=== PATIENT | female | born 1955 | race Caucasian/White ===

== ENCOUNTER 2020-02-22 08:58 | Emergency (ER) | payer BC, SELFPAY ==
[2020-02-22 09:28] VITALS: BP 140/86; PULSE 72; RESP 18; TEMP 36.6; O2SAT 97; BMI 25.9
--- NOTE | 2020-02-22 09:30 | HMH.EDUTC ---
[facility] [place] Disposition Clinical Impression: Bronchitis, Exposure to COVID-19 virus Disposition: Home, Self-Care Condition on Discharge: Good Instructions: Preventing the Spread of Coronavirus Discharge Instructions Additional Instructions: Drink plenty of fluids. Take tylenol for pain or fever. Return if you begin to have difficulty breathing. Follow up with your regular doctor. GO TO THE ER FOR ANY WORSENING SYMPTOMS Prescriptions: Benzonatate [Tessalon Perle 100mg Cap] 100 mg PO TIDP PRN #30 cap PRN Reason: Cough Transmission Status: Sent to [facility] # Azithromycin [Z-Roberto 250mg Tab*] 250 mg PO UD DOSE PK #6 tab Transmission Status: Sent to [facility] # Referrals: Milton Fontanez [Primary Care Provider] - Time of Disposition: 10:03 Medical Decision Making - Medical Records Medical records reviewed: No: I reviewed the patient's medical records. - Matthew Inquiry Pt receiving controlled substance: No Vital Signs: 02/22/20 09:28 02/22/20 10:08 Temperature 97.9 F 97.9 F Temperature Source Oral Oral Pulse Rate 72 Pulse Rate [Radial] 72 Respiratory Rate 18 18 Blood Pressure 140/86 Blood Pressure [Right Arm] 140/86 Blood Pressure Mean [Right Arm] 104 Blood Pressure Source Automatic Cuff Blood Pressure Source [Right Arm] Automatic Cuff Blood Pressure Position Sitting Blood Pressure Position [Right Arm] Sitting 02 Sat by Pulse Oximetry 97 Oxygen Delivery Method Room Air Room Air Orders (Tests/Meds): ORDERS Category Date Time Status Covid-19 Nasal PCR Sendout Jose Ramon Stat Lab 02/22/20 09:25 Received - Radiology Data #1 Image(s): Chest Image Reviewed: Yes I reviewed the patient's radiology image, Yes I have reviewed radiologist's interpretation Preliminary Findings: Normal/NAD PROCEDURE: XR CHEST PORTABLE CLINICAL HISTORY: cough COMPARISON: No exams were available for comparison FINDINGS: The cardiomediastinal silhouette and pulmonary vascularity are within normal limits. The lungs are clear without infiltrates, suspicious nodules, or pleural effusions. Upper thoracic scoliosis convex left. IMPRESSION: No acute findings. Dictated by: Tremaine Champion MD 02/22/2020 10:40 Tremaine Champion MD in [facility] 02/22/2020 10:40 [facility] [place] HPI - General Stated complaint: possible pneumonia, covid test Time Seen by Provider: 02/22/20 09:30 - History of Present Illness Provider Complaint: She c/o having chest congestion, cough and feeling bad for the past 3 to 4 days. She denies fever. She states that she feels like she did in the past when she had pneumonia. She denies shortness of breath. - Related Data Previous Rx's Medication Instructions Recorded Azithromycin [Z-Roberto 250mg Tab*] 250 mg PO UD DOSE PK #6 tab 02/22/20 Benzonatate [Tessalon Perle 100mg 100 mg PO TIDP PRN #30 cap 02/22/20 Cap] Allergies Allergy/AdvReac Type Severity Reaction Status Date / Time No Known Allergies Allergy Verified 02/22/20 09:32 [facility] History - Hepatitis A Screen Attestation statement:: This patient has been screened for Hepatitis A risk factors. I have reviewed the patient's past medical history: Yes ROS Obtained: Yes All systems reviewed & no additional complaints - Constitutional Constitutional: Reports chills, Denies fever(s), Reports poor appetite, Reports malaise - Eyes Eyes: Denies eye discharge - ENT Ears, Nose, Mouth, and Throat: Reports as per HPI - Cardiovascular Cardiovascular: Denies chest pain - Respiratory Respiratory: Yes chest congestion, Yes cough, No dyspnea, No stridor, No wheezing - Gastrointestinal Gastrointestingal: Reports: nausea. Denies: abdominal pain, diarrhea, vomiting Physical Exam - General General appearance: alert, in no apparent distress - Head Head exam: atraumatic, normocephalic, normal inspection - Eye Eye exam: Present: normal appearance, PERRL, EOMI - ENT ENT
--- NOTE | 2020-02-22 09:37 | XR_ITS ---
PROCEDURE: XR CHEST PORTABLE CLINICAL HISTORY: cough COMPARISON: No exams were available for comparison FINDINGS: The cardiomediastinal silhouette and pulmonary vascularity are within normal limits. The lungs are clear without infiltrates, suspicious nodules, or pleural effusions. Upper thoracic scoliosis convex left. IMPRESSION: No acute findings. Dictated by: Tremaine Champion MD 02/22/2020 10:40 Tremaine Champion MD in [facility] 02/22/2020 10:40
[2020-02-22 10:08] VITALS: BP 140/86; PULSE 72; RESP 18; TEMP 36.6; O2SAT 97
[2020-02-22 21:18] LABS: Covid-19 Nasal PCR Sendout Lex Positive
== END 2020-02-22 10:11 | disposition home or self-care (01) ==
PROVIDERS: Emergency Provider Nurse Practitioner Family; PCP Family Medicine
DX: U07.1 COVID-19 (principal)
CPT/HCPCS: 71045; 99202; U0004

== ENCOUNTER 2020-09-22 19:47 | Emergency (ER) | payer BC, MEDICARE, SELFPAY ==
--- NOTE | 2020-09-22 19:58 | ECG_ITS ---
APPROVED REPORT Exam: Resting ECG HR:87 bpm ECG Measurements Heart Rate 87 AXES SC 128 P 57 QRSd 94 QRS 31 QT 376 T 68 QTc 452 Conclusion Normal sinus rhythm Possible Left atrial enlargement Incomplete right bundle branch block Nonspecific ST abnormality Abnormal ECG Electronically signed by : Warren Rojo, 09/24/2020 17:33:21
[2020-09-22 20:02] VITALS: BP 159/97; PULSE 87; RESP 22; TEMP 37.2; O2SAT 93; BMI 25.5
--- NOTE | 2020-09-22 20:12 | XR_ITS ---
PROCEDURE INFORMATION: Exam: XR Chest Exam date and time: 09/22/2020 8:12 PM Age: 65 years old Clinical indication: Cough and shortness of breath; Patient HX: SOA, productive cough, dx with bronchitis a few days ago but medicine isn't helping TECHNIQUE: Imaging protocol: XR of the chest. Views: 2 views. COMPARISON: CR XR CHEST PORTABLE 02/22/2020 9:37 AM FINDINGS: Lungs: See Vasculature finding. Pleural spaces: Unremarkable. No pleural effusion. No pneumothorax. Heart/Mediastinum: Unremarkable. No cardiomegaly. Vasculature: Stable aortic tortuosity and mild calcification. Stable left mid lung nodule. No other significant interval pulmonary changes are seen. Bones/joints: Mild degenerative osseous changes. Scoliosis of the upper dorsal spine is stable. IMPRESSION: No evidence of a new cardiopulmonary process.
[2020-09-22 20:20] VITALS: PULSE 86; PULSE 94
[2020-09-22 20:22] LABS: Microscopic, Urine URINE MICROSCOPIC (MICROSCOPIC)
[2020-09-22 20:26] LABS: Appearance,Urine SL CLOUDY (Clear); Bilirubin,Urine Negative (Negative); Blood, Urine 1+ (Negative); Color,Urine YELLOW (Yellow); Glucose,Urine (UA) 1+ (Negative); Ketones,Urine Negative (Negative); Leukocyte Esterase,Urine Negative (Negative); Nitrate,Urine Negative (Negative); Protein,Urine 2+ (Negative); Specific Gravity, Urine >= 1.030 (1.005-1.030); Urobilinogen,Urine 0.2 EU/dl (0.2)
[2020-09-22 20:27] LABS: Basophils # 0.1 K/mm3 (0-0.2); Basophils % 0.8 % (0.1-2.0); Eosinophils # 0.1 K/mm3 (0.0-0.4); Eosinophils % 1.5 % (0.1-12.0); Hematocrit 45.7 % (37.0-47.0); Hemoglobin 15.3 g/dL (12.2-16.2); Lymphocytes # 2.2 K/mm3 (0.7-4.5); Mean Corpuscular HGB Conc 33.6 g/dL (31.8-35.4); Mean Corpuscular Hemoglobin 29.9 pg (27.0-31.2); Mean Platelet Volume 8.4 fl (7.4-10.4); Monocytes # 0.3 K/mm3 (0.1-1.0); Monocytes % 4.7 % (1.7-9.3); Neutrophils # 4.5 K/mm3 (1.8-7.8); Platelet Count 229 K/mm3 (142-424); Red Blood Count 5.13 M/mm3 (4.20-5.40); Red Cell Distribution Width 13.2 % (11.5-17.5); White Blood Count 7.2 K/mm3 (4.8-10.8)
[2020-09-22 20:31] LABS: Alanine Aminotransferase 22 U/L (12-78); Albumin Level 4.5 g/dl (3.5-5.0); Albumin/Globulin Ratio 1.5 (1.1-1.8); Alkaline Phosphatase 77 U/L (38-126); Anion Gap 14.3 mEq/L (5-15); Aspartate Amino Transferase 28 U/L (14-36); Bilirubin,Total 0.5 mg/dl (0.2-1.3); Blood Urea Nitrogen 11 mg/dl (7-17); Carbon Dioxide 29 mmol/L (22.0-30.0); Chloride 100 mmol/L (98-107); Creatinine Clearance Estimated 52 mL/min (50-200); Estimated Glomerular Filt Rate 100 ml/min (>60); GFR (African American) 121 ML/MIN (>60); Glucose 213 mg/dl (74-100); Potassium 3.3 mmoL/L (3.5-5.1); Sodium 140 mmol/L (136-145); Total Protein,Serum 7.5 g/dl (6.3-8.2)
--- NOTE | 2020-09-22 20:32 | HMH.EDSOB ---
ED Disposition Clinical Impression: Bronchitis, Acute exacerbation of chronic obstructive airways disease Disposition: Home, Self-Care Condition on Discharge: Good Instructions: DI for Shortness of Breath Additional Instructions: use meds and see pcp for follow up Prescriptions: predniSONE [Prednisone 20mg Tab] 20 mg PO BID #10 tab Transmission Status: Pending to [facility] #[id number] Referrals: Milton Fonatnez [Primary Care Provider] - Preston Mata MD [Physician] - - Critical Care Critical Care Time: No Attestation: On 09/22/20, the high probability of a clinically significant, sudden or life threatening deterioration of the following system(s) required my full and direct attention, intervention and personal management. The time I documented below is in addition to time spent performing reported procedures but includes the following listed in this critical care notation. Medical Decision Making - Medical Records Medical records reviewed: Yes: I reviewed the patient's medical records. - Matthew Inquiry Pt receiving controlled substance: No Vital Signs: 09/22/20 20:02 09/22/20 20:20 09/22/20 21:00 Temperature 99.0 F Temperature Source Oral Pulse Rate 86 82 Pulse Rate [Right] 87 Respiratory Rate 22 20 Blood Pressure 146/78 H Blood Pressure [Right Arm] 159/97 H Blood Pressure Mean [Right Arm] 117 Blood Pressure Source [Right Arm] Automatic Cuff Blood Pressure Position [Right Arm] Supine 02 Sat by Pulse Oximetry 93 L 90 L Oxygen Delivery Method Room Air 09/22/20 21:30 09/22/20 22:00 Temperature Temperature Source Pulse Rate 84 77 Pulse Rate [Right] Respiratory Rate 18 21 Blood Pressure 152/77 H 139/76 Blood Pressure [Right Arm] Blood Pressure Mean [Right Arm] Blood Pressure Source [Right Arm] Blood Pressure Position [Right Arm] 02 Sat by Pulse Oximetry 91 L 89 L Oxygen Delivery Method - Lab Data Lab results reviewed: Yes: I reviewed the patient's lab results. Lab Results 09/22/20 19:59: Urine Color Yellow, Urine Appearance Sl cloudy, Urine pH 6.0, Ur Specific [place] >= 1.030, Urine Protein 2+, Urine Glucose (UA) 1+, Urine Ketones Negative, Urine Blood 1+, Urine Nitrate Negative, Urine Bilirubin Negative, Urine Urobilinogen 0.2, Ur Leukocyte Esterase Negative, Urine WBC 3-5, Ur Squamous Epith Cells 3-5, Urine Bacteria Trace 09/22/20 20:00: WBC 7.2, RBC 5.13, Hgb 15.3, Hct 45.7, MCV 89.0, MCH 29.9, MCHC 33.6, RDW 13.2, Plt Count 229, MPV 8.4, Neut % (Auto) 63.0, Lymph % (Auto) 30.0, [place] % (Auto) 4.7, Eos % (Auto) 1.5, Baso % (Auto) 0.8, Neut # (Auto) 4.5, Lymph # (Auto) 2.2, [place] # (Auto) 0.3, Eos # (Auto) 0.1, Baso # (Auto) 0.1, ESR 9 09/22/20 20:00: Sodium 140, Potassium 3.3 L, Chloride 100, Carbon Dioxide 29, Anion Gap 14.3, BUN 11, Creatinine 0.60, Estimated Creat Clear 52, Estimated GFR 100, Est GFR ( Amer) 121, Glucose 213 H, Calcium 9.0, Total Bilirubin 0.5, AST 28, ALT 22, Alkaline Phosphatase 77, C-Reactive Protein 5.2 H, Total Protein 7.5, Albumin 4.5, Globulin 3.0, Albumin/Globulin Ratio 1.5, Procalcitonin 0.033 09/22/20 20:00: Troponin I < 0.01 09/22/20 20:46: Chlamy pneumoniae PCR Not detected, Adenovirus (PCR) Not detected, B. pertussis DNA (PCR) Not detected, Coronavirus OC43 (PCR) Not detected, Coronavirus HKU1 (PCR) Not detected, Coronavirus 229E (PCR) Not detected, SARS-CoV-2 (PCR) Not detected, Coronavirus NL63 (PCR) Not detected, Human Metapneumovir PCR Not detected, Influenza A (H1) PCR Not detected, Influ A (H1N1/09) PCR Not detected, Influenza A (H3) PCR Not detected, Influenza Type A (PCR) Not detected, Influenza Type B (PCR) Not detected, M. pneumoniae (PCR) Not detected, Parainfluenza 1 (PCR) Not detected, Parainfluenza 2 (PCR) Not detected, Parainfluenza 3 (PCR) Not detected, Parainfluenza 4 (PCR) Not detected, RSV (PCR) Not detected, Entero/Rhino (PCR) Detected A Result diagrams: 09/22/20 20:00 09/22/20 20:00 Order
[2020-09-22 20:33] LABS: Bacteria,Urine Trace /lpf
[2020-09-22 20:36] LABS: C-Reactive Protein 5.2 mg/L (0-4)
[2020-09-22 20:50] LABS: Procalcitonin 0.033 ng/mL (0.0-2.0)
[2020-09-22 20:50] LABS: Adenovirus,PCR Not Detected (NotDetected); Bordetella Pertussis Not Detected (NotDetected); Chlamydophila Pneumoniae, PCR Not Detected (NotDetected); Coronavirus 19, PCR Not Detected (NotDetected); Coronavirus 229E Not Detected (NotDetected); Coronavirus NL63 Not Detected (NotDetected); Coronavirus OC43 Not Detected (NotDetected); Coronovirus HKU1,PCR Not Detected (NotDetected); Human Metapneumovirus Not Detected (NotDetected); Influenza A, PCR Not Detected (NotDetected); Influenza AH1, 2009 Not Detected (NotDetected); Influenza AH1, PCR Not Detected (NotDetected); Influenza AH3,PCR Not Detected (NotDetected); Influenza B, PCR Not Detected (NotDetected); Mycoplasma Pneumoniae, PCR Not Detected (NotDetected); Parainfluenza 1, PCR Not Detected (NotDetected); Parainfluenza 2, PCR Not Detected (NotDetected); Parainfluenza 3, PCR Not Detected (NotDetected); Parainfluenza 4, PCR Not Detected (NotDetected); Respiratory Syncytial Virus Not Detected (NotDetected)
[2020-09-22 20:57] LABS: Erythrocyte Sedimentation Rate 9 mm/hr (0-30)
[2020-09-22 21:00] VITALS: BP 146/78; PULSE 82; RESP 20; O2SAT 90
[2020-09-22 21:30] VITALS: BP 152/77; PULSE 84; RESP 18; O2SAT 91
[2020-09-22 21:51] LABS: Troponin I < 0.01 ng/ml (0.00-0.034)
[2020-09-22 22:00] VITALS: BP 139/76; PULSE 77; RESP 21; O2SAT 89
[2020-09-22 22:09] LABS: Rhinovirus/Enterovirus Detected (NotDetected)
[2020-09-22 22:30] VITALS: BP 139/76; PULSE 77; RESP 18; TEMP 37.1; O2SAT 93
== END 2020-09-22 22:32 | disposition home or self-care (01) ==
PROVIDERS: Emergency Provider Emergency Medicine; PCP Family Medicine
DX: J20.9 Acute bronchitis, unspecified (principal); J44.1 Chronic obstructive pulmonary disease with (acute) exacerbation; E78.5 Hyperlipidemia, unspecified
CPT/HCPCS: 71046; 80053; 81001; 84145; 84484; 85025; 85651; 86140; 87581; 87633; 87798; 93005; 96365; 96375; 99283; J2405

== ENCOUNTER 2021-09-17 10:42 | Emergency (ER) | payer BC, SELFPAY ==
[2021-09-17 11:05] VITALS: BP 131/76; PULSE 76; RESP 19; TEMP 37.2; O2SAT 98; BMI 23.8
--- NOTE | 2021-09-17 11:29 | HMH.EDUTC ---
[facility] Disposition Clinical Impression: URI (upper respiratory infection) Qualifiers: URI type: unspecified URI Qualified Code(s): J06.9 - Acute upper respiratory infection, unspecified Disposition: Home, Self-Care Condition on Discharge: Good Instructions: DI for Cough -- Adult, DI for Sinusitis, Sore Throat Additional Instructions: *Monitor Temp, Over the counter Motrin or Tylenol as directed/as needed Tylenol every 4 hours and Motrin every 6 hours (as long as your family doctor has told you that you can take it) for fever or pain. and straight to ER if unable to lower temp less than 101.0 after medication given *Warm salt water gargles may help to soothe the throat *Throat Lozenges *Warm fluids like tea with honey may help to soothe the throat *Sleep elevated *Humidifier/Vaporizer Take medications as prescribed Your throat swab was sent for culture. Those results are typically sent to your primary care. Be sure to follow up in 2-3 days with your family doctor/primary care physician if no improvement so they can review those result and treat if necessary. If you don?t have a primary care doctor, I recommend you get one but in the mean time, you will have to return to a walk in clinic Follow up IMMEDIATELY for new or worsening symptoms or no Noticeable improvement over the next 48-72 hours. 911 for difficulty breathing or swallowing Prescriptions: predniSONE [Deltasone 20mg tablet] 20 mg PO BID 5 Days #10 tab Transmission Status: Pending to [facility] # Cefdinir [Omnicef 300mg Capsule] 300 mg PO BID #20 cap Transmission Status: Pending to [facility] # Promethazine/Dextromethorphan [Promethazine-Dm Syrup] 2.5 - 5 ml PO Q4H PRN #120 ml PRN Reason: Cough Transmission Status: Pending to [facility] # Referrals: Milton Fontanez [Primary Care Provider] - As needed Time of Disposition: 11:49 Medical Decision Making - Matthew Inquiry Pt receiving controlled substance: No Matthew was queried for this patient: No Vital Signs: 09/17/21 11:05 Temperature 99.0 F Temperature Source Oral Pulse Rate [Right Brachial] 76 Respiratory Rate 19 Blood Pressure [Right Arm] 131/76 Blood Pressure Mean [Right Arm] 94 Blood Pressure Source [Right Arm] Automatic Cuff Blood Pressure Position [Right Arm] Sitting 02 Sat by Pulse Oximetry 98 Oxygen Delivery Method Room Air Orders (Tests/Meds): ORDERS Category Date Time Status Rapid Strep Scrn Group A [Strep Scrn Group A (Rapid)] Lab 09/17/21 11:12 Received Stat Medical Decision Narrative: Patient states that she has taken prednisone in the past without complications or reactions [facility] HPI - General Stated complaint: cough Time Seen by Provider: 09/17/21 11:29 Mode of Arrival: Ambulatory Source of Information: Patient Limitations: No Limitations Description of Symptoms (Recalled from Triage Doc. by RN): PATIENT C/O PRODUCTIVE COUGH, CHEST CONGESTION, AND SORE THROAT HEENT Symptoms (Recalled from RN notes): Yes Resp Symptoms (Recalled from RN notes): Yes Skin Symptoms (Recalled from RN notes): No MS Symptoms (Recalled from RN notes): No Functional Status (Recalled from RN notes): WNL - History of Present Illness Provider Complaint: Patient states that she has been having cough, sinus congestion and drainage ,sore throat and at times she is able to cough up some clear mucous States that hurts when she swallows so today when she was still not feeling well today she came in to get checked out - Related Data Home Medications Medication Instructions Recorded Confirmed ergocalciferol (vitamin D2) 1,250 1,250 mcg PO DAILY cap 09/20/20 09/22/20 mcg (50,000 unit) capsule rosuvastatin 40 mg tablet 40 mg PO DAILY tab 09/20/20 09/22/20 Previous Rx's Medication Instructions Recorded benzonatate 200 mg capsule 200 mg PO TID PRN 7 Days #21 cap 09/20/20 levofloxacin 750 mg tablet 750 mg PO Q24H 5 Days #5
[2021-09-17 11:31] LABS: Strep Scrn Group A (Rapid) Negative (Negative)
[2021-09-17 11:45] VITALS: BP 131/76; PULSE 76; RESP 19; TEMP 37.2; O2SAT 98
== END 2021-09-17 11:52 | disposition home or self-care (01) ==
PROVIDERS: Emergency Provider Nurse Practitioner; PCP Family Medicine
DX: J06.9 Acute upper respiratory infection, unspecified (principal); R05.9 Cough, unspecified; R09.89 Other specified symptoms and signs involving the circulatory and respiratory systems; R07.0 Pain in throat; Z72.0 Tobacco use; E78.5 Hyperlipidemia, unspecified
CPT/HCPCS: 87430; 99212; G0463

== ENCOUNTER 2021-11-15 09:52 | Emergency (ER) | payer BC, SELFPAY ==
[2021-11-15 10:05] VITALS: BMI 28.1
--- NOTE | 2021-11-15 10:09 | HMH.EDUTC ---
[facility] [place] Disposition Clinical Impression: Bronchitis Disposition: Home, Self-Care Condition on Discharge: Good Instructions: Acute Bronchitis, DI for Acute Bronchitis Additional Instructions: Drink plenty of fluids. Take tylenol or ibuprofen for pain or fever. Take the medications as directed. Follow up with your regular doctor. GO TO THE ER FOR ANY WORSENING SYMPTOMS We will culture the urine. That will tell what bacteria is causing your infection and which antibiotics will treat it best. Sometimes the first antibiotic we prescribe turns out to not work against different bacteria. So, make sure you follow up within 3 days if you are not getting better. Prescriptions: Benzonatate [Benzonatate 100mg cap] 100 mg PO TIDP PRN #30 cap PRN Reason: Cough Transmission Status: Received by [facility] # predniSONE [Deltasone 10mg tablet] 10 mg PO BID 3 Days #6 tab Transmission Status: Received by [facility] # Cefdinir [Omnicef 300mg Capsule] 300 mg PO BID #20 cap Transmission Status: Received by [facility] # Referrals: Milton Fontanez [Primary Care Provider] - Time of Disposition: 10:43 Medical Decision Making - Medical Records Medical records reviewed: No: I reviewed the patient's medical records. - Matthew Inquiry Pt receiving controlled substance: No Vital Signs: 11/15/21 10:16 11/15/21 10:45 Temperature 98.4 F 98.4 F Temperature Source Oral Oral Pulse Rate 74 Pulse Rate [Left Radial] 76 Respiratory Rate 20 17 Blood Pressure 148/90 H Blood Pressure [Right Arm] 151/96 H Blood Pressure Mean [Right Arm] 114 02 Sat by Pulse Oximetry 96 Oxygen Delivery Method Room Air - Lab Data Lab Results 11/15/21 10:06: Urine Color Yellow, Urine Appearance Clear, Urine pH 5.0, Ur Specific [place] 1.025, Urine Protein Negative, Urine Glucose (UA) 250, Urine Ketones Negative, Urine Blood 1+, Urine Nitrate Negative, Urine Bilirubin Negative, Urine Urobilinogen 0.2, Ur Leukocyte Esterase Negative Orders (Tests/Meds): ORDERS Category Date Time Status Urine Culture Stat Micro 11/15/21 09:56 Received [facility] [place] HPI - General Stated complaint: cough, possible kidney infection Time Seen by Provider: 11/15/21 10:09 - History of Present Illness Provider Complaint: She states that for the past 3 weeks she has had low back pain and urinary frequency. Over the past 3 days she has developed a cough and chest congestion. She denies fever or chills. - Related Data Home Medications Medication Instructions Recorded Confirmed ergocalciferol (vitamin D2) 1,250 1,250 mcg PO DAILY cap 09/20/20 09/22/20 mcg (50,000 unit) capsule rosuvastatin 40 mg tablet 40 mg PO DAILY tab 09/20/20 09/22/20 Previous Rx's Medication Instructions Recorded benzonatate 200 mg capsule 200 mg PO TID PRN 7 Days #21 cap 09/20/20 levofloxacin 750 mg tablet 750 mg PO Q24H 5 Days #5 tab 09/20/20 predniSONE [Prednisone 20mg 20 mg PO BID #10 tab 09/22/20 Tab] Cefdinir [Omnicef 300mg Capsule] 300 mg PO BID #20 cap 09/17/21 Promethazine/Dextromethorphan 2.5 - 5 ml PO Q4H PRN #120 ml 09/17/21 [Promethazine-Dm Syrup] predniSONE [Deltasone 20mg 20 mg PO BID 5 Days #10 tab 09/17/21 tablet] Benzonatate [Benzonatate 100mg 100 mg PO TIDP PRN #30 cap 11/15/21 cap] Cefdinir [Omnicef 300mg Capsule] 300 mg PO BID #20 cap 11/15/21 predniSONE [Deltasone 10mg tablet] 10 mg PO BID 3 Days #6 tab 11/15/21 Allergies Allergy/AdvReac Type Severity Reaction Status Date / Time No Known Allergies Allergy Verified 09/20/20 11:09 [facility] History - Hepatitis A Screen Attestation statement:: This patient has been screened for Hepatitis A risk factors. I have reviewed the patient's past medical history: Yes Medical History: Reports:: Hyperlipidemia Denies:: Diabetes Mellitus Type 1, Diabetes Mellitus Type 2 Other Surgeries: Yes: No Previous Surg
[2021-11-15 10:15] LABS: Apearance,Urine Clear (Clear); Bilirubin,Urine Negative (Negative); Blood, Urine 1+ (Negative); Color,Urine Yellow (Yellow); Glucose,Urine (UA) 250 (Negative); Ketones,Urine Negative (Negative); Protein,Urine Negative (Negative); Specific Gravity, Urine 1.025 (1.005-1.030)
--- NOTE | 2021-11-15 10:15 | XR_ITS ---
FINAL REPORT CLINICAL HISTORY: productive cough x1 month. smoker COMPARISON: 09/22/2020 FINDINGS: Two views of the chest were obtained. The heart size and pulmonary vascularity are within normal limits. The mediastinum is normal. The lungs are hyperinflated consistent with COPD. There is mild biapical pleural thickening. There is mild left lung base opacity. There is no pneumothorax. There is levoscoliosis of the thoracic spine. IMPRESSION: Mild left base opacity favors atelectasis over pneumonia. Reviewed, Interpreted and Dictated by Fernando Villalobos III, MD Transcribed by Cleve Lieberman Authenticated and . [facility]
[2021-11-15 10:16] VITALS: BP 151/96; PULSE 76; RESP 20; TEMP 36.9; O2SAT 96; BMI 28.0
[2021-11-15 10:16] LABS: UTC Leukocyte Esterase,Urine Negative (Negative); UTC Nitrate,Urine Negative (Negative); Urobilinogen,Urine 0.2 EU/dl (0.2)
--- NOTE | 2021-11-15 10:21 | PC.NURSE ---
pt to xray at this time with radiology staff
--- NOTE | 2021-11-15 10:27 | PC.NURSE ---
pt back from xray
[2021-11-15 10:45] VITALS: BP 148/90; PULSE 74; RESP 17; TEMP 36.9; O2SAT 97
== END 2021-11-15 10:50 | disposition home or self-care (01) ==
LOC: UTC 09:56
PROVIDERS: Emergency Provider Nurse Practitioner Family; PCP Family Medicine
DX: J40 Bronchitis, not specified as acute or chronic (principal)
CPT/HCPCS: 71046; 81003; 87086; 99212; G0463

== ENCOUNTER 2021-12-22 09:23 | Emergency (ER) | payer BC, SELFPAY ==
[2021-12-22] VITALS (10 sets, daily range): BP systolic 159–183; BP diastolic 78–109; PULSE 61–91; RESP 16–24; TEMP 36.6–36.7; O2SAT 91–98; BMI 24.6
--- NOTE | 2021-12-22 09:31 | ECG_ITS ---
APPROVED REPORT Exam: Resting ECG HR:73 bpm ECG Measurements Heart Rate 73 AXES ME 133 P 20 QRSd 85 QRS 28 QT 388 T 56 QTc 414 Conclusion SINUS RHYTHM POSSIBLE RIGHT VENTRICULAR CONDUCTION DELAY [RSR (QR) IN V1/V2] SEPTAL MYOCARDIAL INFARCTION , PROBABLY OLD [40+ ms Q WAVE IN V1/V2] ABNORMAL ECG INTERPRETATION BASED ON A DEFAULT AGE OF 39 YEARS UNCONFIRMED REPORT Electronically signed by : Warren Rojo MD 12/26/2021 16:03:32
--- NOTE | 2021-12-22 09:46 | HMH.EDGENADL ---
Discharge Plan Disposition Patient Disposition: Home, Self-Care Condition: Fair Prescriptions Prescriptions: New promethazine-DM 6.25-15 mg/5 mL syrup 5 ml PO Q6H PRN (Reason: cough) Qty: 118 0RF azithromycin 250 mg tablet 250 mg PO DAILY Qty: 4 0RF albuterol sulfate 90 mcg/actuation HFA aerosol inhaler 1 - 2 puff inhalation Q6H PRN (Reason: Wheezing) Qty: 1 0RF prednisone 20 mg tablet 20 mg PO BID Qty: 10 0RF No Action ergocalciferol (vitamin D2) 1,250 mcg (50,000 unit) capsule 1,250 mcg PO DAILY Label Comments: TAKE 1 CAPSULE BY MOUTH ONCE WEEKLY FOR 4 WEEKS AND THEN TAKE 1 CAPSULE BY MOUTH ONCE MONTHLY rosuvastatin 40 mg tablet 40 mg PO DAILY benzonatate 200 mg capsule 200 mg PO TID PRN (Reason: cough) 7 Days Qty: 21 0RF levofloxacin 750 mg tablet 750 mg PO Q24H 5 Days Qty: 5 0RF prednisone 20 MG tablet 20 mg PO BID Qty: 10 0RF promethazine-DM 120 ML syrup 2.5 - 5 ml PO Q4H PRN (Reason: Cough) Qty: 120 0RF prednisone 20 MG tablet 20 mg PO BID 5 Days Qty: 10 0RF cefdinir 300 MG capsule 300 mg PO BID Qty: 20 0RF benzonatate 100 MG capsule 100 mg PO TIDP PRN (Reason: Cough) Qty: 30 0RF cefdinir 300 MG capsule 300 mg PO BID Qty: 20 0RF prednisone 10 MG tablet 10 mg PO BID 3 Days Qty: 6 0RF Referrals Follow up/Referrals: Milton Fontanez [Primary Care Provider] - See instructions Activity Restrictions/Add. Instructions Additional Instructions/Restrictions: Zithromax, prednisone, albuterol inhaler as prescribed. Promethazine DM cough medicine as needed. Additional instructions for ACUTE BRONCHITIS: Use Tylenol or Ibuprofen for pain or fever. Rest and plenty of fluids. Return immediately if you have an uncontrollable fever greater than 102 degrees, severe headache or neck stiffness, difficulty breathing or shortness of breath, persistent vomiting, severe sore throat or inability to swallow. See your physician if not improving in 4-5 days. Clinical Impressions Clinical Impression: Acute bronchitis with bronchospasm Instructions Patient Instructions: Acute Bronchitis, Bronchospasm-Adult Discharge ED Provider: Boris Tsang General Adult HPI General Chief complaint: Shortness of Breath/Dyspnea Stated complaint: SOA Time Seen by Provider: 12/22/21 09:50 History of Present Illness HPI narrative: States she was here for bronchitis, seen at the urgent treatment center 3 weeks ago. Treated with prednisone and Tessalon Perles. States that she felt better for a week, but then for the past 2 weeks has had increasing shortness of breath, has a cough productive of yellow sputum. Has coughing paroxysms where she will cough for 5 minutes straight. Her chest is sore from coughing. She will feel hot at night when she has a coughing fit, but has no documented fevers. She has rhinorrhea. Denies sore throat. Denies vomiting or diarrhea. She is a smoker. States she has not been diagnosed with COPD. She is not on nebulizers or metered-dose inhalers. Related Data Home Medications Medication Instructions Recorded Confirmed ergocalciferol (vitamin D2) 1,250 1,250 mcg PO DAILY Diet supplement 09/20/20 09/22/20 mcg (50,000 unit) capsule rosuvastatin 40 mg tablet 40 mg PO DAILY Cholesterol 09/20/20 09/22/20 Previous Rx's Medication Instructions Recorded benzonatate 200 mg capsule 200 mg PO TID PRN cough 7 days #21 09/20/20 caps levofloxacin 750 mg tablet 750 mg PO Q24H resp infection 5 09/20/20 days #5 tabs prednisone 20 mg tablet 20 mg PO BID #10 tabs 09/22/20 cefdinir 300 mg capsule 300 mg PO BID #20 caps 09/17/21 prednisone 20 mg tablet 20 mg PO BID 5 days #10 tabs 09/17/21 promethazine-DM 6.25 mg-15 mg/5 mL 2.5 - 5 ml PO Q4H PRN Cough #120 mL 09/17/21 oral syrup benzonatate 100 mg capsule 100 mg PO TIDP PRN Cough #30 caps 11/15/21 cefdinir 300 mg capsule 300 mg PO BID #20 caps 11/15/21 prednisone 10 mg tablet
--- NOTE | 2021-12-22 09:59 | PC.NURSE ---
Obtained EKG, RN placed IV access and obtained blood & BCX2
--- NOTE | 2021-12-22 10:16 | XR_ITS ---
PROCEDURE INFORMATION: Exam: XR Chest Exam date and time: 12/22/2021 10:29 AM Age: 66 years old Clinical indication: Shortness of breath; Additional info: Cough, SOA TECHNIQUE: Imaging protocol: Radiologic exam of the chest. Views: 2 views. COMPARISON: CR XR CHEST 2V 11/15/2021 10:15 AM FINDINGS: Lungs: Hyperlucent changes are demonstrated. Increase in the lung volumes is demonstrated. Overall appearance of the lung parenchyma stable. Regions of subsegmental atelectasis again demonstrated at the left lung base. Pleural spaces: Unremarkable. No pleural effusion. No pneumothorax. Heart/Mediastinum: Unremarkable. No cardiomegaly. Diaphragm: There is flattening of the hemidiaphragms. Bones/joints: Persistent scoliosis of the thoracic spine convexity to the left. IMPRESSION: No evidence of acute cardiopulmonary disease.
[2021-12-22 10:28] LABS: Basophils # 0.2 K/mm3 (0-0.2); Basophils % 2.4 % (0.1-2.0); Eosinophils # 0.2 K/mm3 (0.0-0.4); Eosinophils % 2.2 % (0.1-12.0); Hematocrit 49.6 % (37.0-47.0); Hemoglobin 16.1 g/dL (12.2-16.2); Lymphocytes # 2.3 K/mm3 (0.7-4.5); Lymphocytes % 32.5 % (10-50); Mean Corpuscular HGB Conc 32.5 g/dL (31.8-35.4); Mean Corpuscular Hemoglobin 30.3 pg (27.0-31.2); Mean Corpuscular Volume 93.2 fl (81-99); Mean Platelet Volume 8.6 fl (7.4-10.4); Monocytes # 0.3 K/mm3 (0.1-1.0); Monocytes % 3.7 % (1.7-9.3); Neutrophils # 4.2 K/mm3 (1.8-7.8); Neutrophils % 59.2 % (37.0-80.0); Platelet Count 239 K/mm3 (142-424); Red Blood Count 5.32 M/mm3 (4.20-5.40); Red Cell Distribution Width 13.5 % (11.5-17.5); White Blood Count 7.1 K/mm3 (4.8-10.8)
[2021-12-22 10:30] LABS: Chloride 100 mmol/L (98-107)
[2021-12-22 10:31] LABS: Potassium 4.5 mmoL/L (3.5-5.1); Sodium 138 mmol/L (136-145)
[2021-12-22 10:31] LABS: Coronavirus 19, PCR Not Detected (NotDetected); Influenza A, PCR Not Detected (NotDetected); Influenza B, PCR Not Detected (NotDetected)
[2021-12-22 10:33] LABS: Alanine Aminotransferase 20 U/L (12-78); Alkaline Phosphatase 83 U/L (38-126); Anion Gap 14.5 mEq/L (5-15); Aspartate Amino Transferase 36 U/L (14-36); Bilirubin,Total 0.4 mg/dl (0.2-1.3); Blood Urea Nitrogen 9 mg/dl (7-17); Carbon Dioxide 28 mmol/L (22.0-30.0); Creatinine Clearance Estimated 49 mL/min (50-200); Estimated Glomerular Filt Rate 123 ml/min (>60); GFR (African American) 149 ML/MIN (>60); Glucose 206 mg/dl (74-100)
[2021-12-22 10:34] LABS: Albumin Level 4.3 g/dl (3.5-5.0); Albumin/Globulin Ratio 1.4 (1.1-1.8); Calcium 8.6 mg/dl (8.4-10.2); Lactic Acid 1.9 mmol/L (0.7-2.1); Total Protein,Serum 7.3 g/dl (6.3-8.2)
[2021-12-22 10:56] LABS: Adenovirus,PCR Not Detected (NotDetected); Bordetella Pertussis Not Detected (NotDetected); Chlamydophila Pneumoniae, PCR Not Detected (NotDetected); Coronavirus 19, PCR Not Detected (NotDetected); Coronavirus 229E Not Detected (NotDetected); Coronavirus NL63 Not Detected (NotDetected); Coronavirus OC43 Not Detected (NotDetected); Coronovirus HKU1,PCR Not Detected (NotDetected); Human Metapneumovirus Not Detected (NotDetected); Influenza A, PCR Not Detected (NotDetected); Influenza AH1, 2009 Not Detected (NotDetected); Influenza AH1, PCR Not Detected (NotDetected); Influenza AH3,PCR Not Detected (NotDetected); Influenza B, PCR Not Detected (NotDetected); Mycoplasma Pneumoniae, PCR Not Detected (NotDetected); Parainfluenza 1, PCR Not Detected (NotDetected); Parainfluenza 2, PCR Not Detected (NotDetected); Parainfluenza 3, PCR Not Detected (NotDetected); Parainfluenza 4, PCR Not Detected (NotDetected); Respiratory Syncytial Virus Not Detected (NotDetected)
[2021-12-22 12:18] LABS: Rhinovirus/Enterovirus Detected (NotDetected)
== END 2021-12-22 12:38 | disposition home or self-care (01) ==
PROVIDERS: Emergency Provider Emergency Medicine; PCP Family Medicine
DX: J20.9 Acute bronchitis, unspecified (principal)
CPT/HCPCS: 71046; 80053; 83605; 85025; 87040; 87070; 87205; 87581; 87632; 87798; 93005; 94640; 96365; 96375; 99284; C9803; J0456; U0003; U0005

== ENCOUNTER 2022-06-19 13:38 | Emergency (ER) | payer BC, SELFPAY ==
[2022-06-19 13:45] VITALS: BP 150/66; PULSE 76; RESP 20; TEMP 37.1; O2SAT 95; BMI 23.6
--- NOTE | 2022-06-19 14:03 | EXP.UTC ---
Discharge Plan Disposition Patient Disposition: Home, Self-Care Condition: Good Prescriptions Prescriptions: New levofloxacin 500 mg tablet 500 mg PO DAILY 7 Days Qty: 7 0RF promethazine-DM 6.25-15 mg/5 mL syrup 5 ml PO Q6H PRN (Reason: cough) Qty: 118 0RF No Action ergocalciferol (vitamin D2) 1,250 mcg (50,000 unit) capsule 1,250 mcg PO DAILY Label Comments: TAKE 1 CAPSULE BY MOUTH ONCE WEEKLY FOR 4 WEEKS AND THEN TAKE 1 CAPSULE BY MOUTH ONCE MONTHLY rosuvastatin 40 mg tablet 40 mg PO DAILY albuterol sulfate 90 mcg/actuation HFA aerosol inhaler 1 - 2 puff inhalation Q6H PRN (Reason: Wheezing) Qty: 1 0RF Referrals Follow up/Referrals: Jeferson Torres MD [Primary Care Provider] - See instructions Activity Restrictions/Add. Instructions Additional Instructions/Restrictions: Levaquin and Promethazine DM as prescribed. Follow-up with primary care provider if not improved next week Clinical Impressions Clinical Impression: Acute bronchitis, Sinusitis Instructions Patient Instructions: DI for Sinusitis, DI for Acute Bronchitis Discharge ED Provider: Boris Tsang [facility] General Chief complaint: Upper Respiratory Infection Stated complaint: congestion X 3 weeks,cough Mode of Arrival: Ambulatory Source of Information: Patient Limitations: No Limitations Time Seen by Provider: 06/19/22 14:25 Description of Symptoms (Recalled from Triage Doc. by RN): PATIENT C/O PRODUCTIVE COUGH, SOA, AND SWEATS FOR APPROX 2.5 WEEKS. SHE ALSO C/O CHEST PRESSURE THAT STARTED LAST NIGHT. SHE STATES IT FEELS LIKE AN ELEPHANT IS SITTING ON HER CHEST HEENT Symptoms (Recalled from RN notes): No Resp Symptoms (Recalled from RN notes): Yes Skin Symptoms (Recalled from RN notes): No MS Symptoms (Recalled from RN notes): No Functional Status (Recalled from RN notes): WNL History of Present Illness Provider Complaint: Patient state that she is an everyday smoker and for the last couple of weeks she has been having productive cough and feeling SOA at times States that she thought it would get better but last night she felt heavy pressure in her chest that continued throughout the night into today and earlier this morning it felt like an elephant was sitting on her chest so she came in Related Data Home Medications Medication Instructions Recorded Confirmed ergocalciferol (vitamin D2) 1,250 1,250 mcg PO DAILY Diet supplement 09/20/20 09/22/20 mcg (50,000 unit) capsule rosuvastatin 40 mg tablet 40 mg PO DAILY Cholesterol 09/20/20 09/22/20 Previous Rx's Medication Instructions Recorded albuterol sulfate 90 mcg/actuation 1 - 2 puff inhalation Q6H PRN 12/22/21 aerosol inhaler Wheezing #1 ea levofloxacin 500 mg tablet 500 mg PO DAILY 7 days #7 tabs 06/19/22 promethazine-DM 6.25 mg-15 mg/5 mL 5 ml PO Q6H PRN cough #118 mL 06/19/22 oral syrup Allergies Allergy/AdvReac Type Severity Reaction Status Date / Time No Known Allergies Allergy Verified 09/20/20 11:09 Worker's Comp Is this a Worker's Comp case?: No [facility] Disclaimer: The information contained in this section may have been updated after the patient was seen, as this information can be updated by other users. Social History Smoking Status: Current every day smoker tobacco type: cigarettes packs per day: 1 alcohol intake: never current occupational status: other Travel in the last 8 weeks: None ROS Obtained: Yes All systems reviewed & no additional complaints except as documented and Yes Systems reviewed as appropriate & no additional complaints except as documented Constitutional Constitutional: Reports system reviewed and no additional complaints, except as documented, Reports as per HPI and Reports fatigue ENT Ears, Nose, Mouth, and Throat: Reports system reviewed and no additional complaints, except as documented and Reports as per HPI Cardiovascular Cardiovascular: Reports system reviewed and no additional co
--- NOTE | 2022-06-19 14:10 | PC.NURSE ---
PATIENT SENT TO ER PER Emmanuel JOSUE APRN FOR FURTHER EVALUATION. REPORT GIVEN TO JYOTI WALKER BY Emmanuel JOSUE APRN
[2022-06-19 14:19] VITALS: BP 157/83; PULSE 75; RESP 13; TEMP 36.9; O2SAT 96; BMI 24.4
--- NOTE | 2022-06-19 14:22 | XR_ITS ---
FINAL REPORT CLINICAL HISTORY: cough, congested, chest pressure COMPARISON: 12/22/2021 FINDINGS: 2 views of the chest were obtained . The heart is normal in size. The mediastinum is within normal limits. There is a calcified granuloma in the left lung. The lungs are otherwise clear. There is no pneumothorax. Osseous structures are unremarkable. IMPRESSION: No acute cardiopulmonary process. Reviewed, Interpreted and Dictated by Robbin Torrez MD Transcribed by Marguerite Gusman Authenticated and [facility]
--- NOTE | 2022-06-19 14:25 | HMH.EDGENADL ---
Discharge Plan Disposition Patient Disposition: Home, Self-Care Condition: Good Prescriptions Prescriptions: New levofloxacin 500 mg tablet 500 mg PO DAILY 7 Days Qty: 7 0RF promethazine-DM 6.25-15 mg/5 mL syrup 5 ml PO Q6H PRN (Reason: cough) Qty: 118 0RF No Action ergocalciferol (vitamin D2) 1,250 mcg (50,000 unit) capsule 1,250 mcg PO DAILY Label Comments: TAKE 1 CAPSULE BY MOUTH ONCE WEEKLY FOR 4 WEEKS AND THEN TAKE 1 CAPSULE BY MOUTH ONCE MONTHLY rosuvastatin 40 mg tablet 40 mg PO DAILY albuterol sulfate 90 mcg/actuation HFA aerosol inhaler 1 - 2 puff inhalation Q6H PRN (Reason: Wheezing) Qty: 1 0RF Referrals Follow up/Referrals: Jeferson Torres MD [Primary Care Provider] - See instructions Activity Restrictions/Add. Instructions Additional Instructions/Restrictions: Levaquin and Promethazine DM as prescribed. Follow-up with primary care provider if not improved next week Clinical Impressions Clinical Impression: Acute bronchitis, Sinusitis Instructions Patient Instructions: DI for Sinusitis, DI for Acute Bronchitis Discharge ED Provider: Boris Tsang General Adult HPI General Chief complaint: Upper Respiratory Infection Stated complaint: congestion X 3 weeks,cough Time Seen by Provider: 06/19/22 14:25 Mode of Arrival: Wheelchair Source of Information: Patient Limitations: No Limitations Description of Symptoms (Recalled from ER Triage Doc. by RN): c/o cough for two weeks and then last night it started feeling like an elephant is sitting on my chest History of Present Illness HPI narrative: The patient is sent from the urgent treatment center. Patient states that she has been sick for 3 weeks with a cough producing large amounts of green sputum, also large amounts of green nasal discharge. She says that for a few days she will feel better, but then each time would relapse. She had an appointment with her primary care provider last week, but had to cancel. She has not taken her temperature at home, but at times feels hot and chilled. Complains of a heavy feeling on her chest. She does not feel like she has been wheezing. She does not have COPD or asthma. She is a smoker. States that she gets sinusitis every year Related Data Home Medications Medication Instructions Recorded Confirmed ergocalciferol (vitamin D2) 1,250 1,250 mcg PO DAILY Diet supplement 09/20/20 09/22/20 mcg (50,000 unit) capsule rosuvastatin 40 mg tablet 40 mg PO DAILY Cholesterol 09/20/20 09/22/20 Previous Rx's Medication Instructions Recorded albuterol sulfate 90 mcg/actuation 1 - 2 puff inhalation Q6H PRN 12/22/21 aerosol inhaler Wheezing #1 ea levofloxacin 500 mg tablet 500 mg PO DAILY 7 days #7 tabs 06/19/22 promethazine-DM 6.25 mg-15 mg/5 mL 5 ml PO Q6H PRN cough #118 mL 06/19/22 oral syrup Allergies Allergy/AdvReac Type Severity Reaction Status Date / Time No Known Allergies Allergy Verified 09/20/20 11:09 [facility] Disclaimer: The information contained in this section may have been updated after the patient was seen, as this information can be updated by other users. Social History Smoking Status: Current every day smoker tobacco type: cigarettes packs per day: 1 alcohol intake: never current occupational status: other Travel in the last 8 weeks: None ROS Obtained: Yes Systems reviewed as appropriate & no additional complaints except as documented Constitutional Constitutional: Reports as per HPI, Denies headache(s) and Denies weakness ENT Ears, Nose, Mouth, and Throat: Denies headache(s), Reports nasal discharge and Denies sore throat Cardiovascular Cardiovascular: Reports chest pain (Heaviness) Respiratory Respiratory: Denies shortness of breath, Reports cough, Reports cough with sputum production and Denies wheezing Gastrointestinal Gastrointestingal: Denies abdominal pain, constipation, diarrhea or vomiting Genitourinary Female Olivia
[2022-06-19 14:32] LABS: Coronavirus 19, PCR Not Detected (NotDetected); Influenza A, PCR Not Detected (NotDetected); Influenza B, PCR Not Detected (NotDetected)
[2022-06-19 14:37] LABS: Basophils # 0.1 K/mm3 (0-0.2); Basophils % 1.1 % (0.1-2.0); Eosinophils # 0.2 K/mm3 (0.0-0.4); Eosinophils % 1.9 % (0.1-12.0); Hematocrit 46.2 % (37.0-47.0); Hemoglobin 15.2 g/dL (12.2-16.2); Lymphocytes # 2.7 K/mm3 (0.7-4.5); Lymphocytes % 25.1 % (10-50); Mean Corpuscular HGB Conc 32.9 g/dL (31.8-35.4); Mean Corpuscular Hemoglobin 30.5 pg (27.0-31.2); Mean Corpuscular Volume 92.9 fl (81-99); Mean Platelet Volume 8.2 fl (7.4-10.4); Monocytes # 0.4 K/mm3 (0.1-1.0); Monocytes % 3.9 % (1.7-9.3); Neutrophils # 7.4 K/mm3 (1.8-7.8); Neutrophils % 67.9 % (37.0-80.0); Platelet Count 295 K/mm3 (142-424); Red Blood Count 4.98 M/mm3 (4.20-5.40); Red Cell Distribution Width 13.5 % (11.5-17.5); White Blood Count 10.9 K/mm3 (4.8-10.8)
[2022-06-19 14:39] LABS: Chloride 102 mmol/L (98-107); Sodium 140 mmol/L (136-145)
[2022-06-19 14:41] LABS: Blood Urea Nitrogen 9 mg/dl (7-17); Creatinine Clearance Estimated 48 mL/min (50-200); Estimated Glomerular Filt Rate 123 ml/min (>60); GFR (African American) 148 ML/MIN (>60)
[2022-06-19 14:42] LABS: Alanine Aminotransferase 15 U/L (12-78); Albumin Level 4.3 g/dl (3.5-5.0); Albumin/Globulin Ratio 1.3 (1.1-1.8); Alkaline Phosphatase 89 U/L (38-126); Aspartate Amino Transferase 21 U/L (14-36); Bilirubin,Total 0.4 mg/dl (0.2-1.3); Calcium 8.3 mg/dl (8.4-10.2); Carbon Dioxide 32 mmol/L (22.0-30.0); Globulin 3.2 g/dL (1.3-3.2); Glucose 146 mg/dl (74-100); Total Protein,Serum 7.5 g/dl (6.3-8.2)
[2022-06-19 14:43] LABS: Lactic Acid 1.4 mmol/L (0.7-2.1)
[2022-06-19 14:58] LABS: Troponin I < 0.01 ng/ml (0.00-0.034)
--- NOTE | 2022-06-19 14:58 | ECG_ITS ---
APPROVED REPORT Exam: Resting ECG HR:70 bpm ECG Measurements Heart Rate 70 AXES AL 135 P 17 QRSd 88 QRS 24 QT 404 T 59 QTc 424 Conclusion SINUS RHYTHM POSSIBLE RIGHT VENTRICULAR CONDUCTION DELAY [RSR (QR) IN V1/V2] SEPTAL MYOCARDIAL INFARCTION , PROBABLY OLD [40+ ms Q WAVE IN V1/V2] ABNORMAL ECG UNCONFIRMED REPORT Electronically signed by : Warren Rojo MD 06/19/2022 16:41:34
[2022-06-19 16:01] VITALS: BP 120/80; PULSE 70; RESP 16; TEMP 37.2; O2SAT 95
== END 2022-06-19 16:02 | disposition home or self-care (01) ==
LOC: UTC 13:42 → ER 14:05
PROVIDERS: Emergency Provider Emergency Medicine; PCP Family Medicine
DX: J20.9 Acute bronchitis, unspecified (principal); J01.90 Acute sinusitis, unspecified
CPT/HCPCS: 71046; 80053; 83605; 84484; 85025; 93005; 99284; 99285; C9803; U0003; U0005

== ENCOUNTER 2022-12-28 10:40 | Emergency (ER) | payer BC, SELFPAY ==
[2022-12-28 11:00] VITALS: BP 128/76; PULSE 78; RESP 19; TEMP 36.9; O2SAT 100; BMI 20.5
--- NOTE | 2022-12-28 11:16 | EXP.UTC ---
Discharge Plan Disposition Patient Disposition: Home, Self-Care Condition: Good Prescriptions Prescriptions: New prednisone 10 mg tablet 10 mg PO BID Qty: 10 0RF cefdinir 300 mg capsule 300 mg PO BID Qty: 20 0RF guaifenesin [Mucinex] 600 mg tablet extended release 12hr 600 mg PO BID PRN (Reason: cough) Qty: 20 0RF No Action rosuvastatin 40 mg tablet 40 mg PO DAILY losartan 50 mg tablet 50 mg PO DAILY Patient Comments: TAKE 1 TABLET BY MOUTH DAILY cyanocobalamin (vitamin B-12) 1,000 mcg/mL solution 1,000 mcg IM MONTHLY escitalopram oxalate 20 mg tablet 20 mg PO DAILY Patient Comments: TAKE 1 TABLET BY MOUTH DAILY Referrals Follow up/Referrals: Provider,Referral, MD [Primary Care Provider] - See instructions Activity Restrictions/Add. Instructions Additional Instructions/Restrictions: Start antibiotic today. Be sure to complete entire prescription even if feeling better Monitor temp. Tylenol every 4 hours as needed and / or ibuprofen every 6 hours as needed ( As long as your primary care physician has told you that it ok to take both. For fever/aches/pains ER if no less than 101 despite Tylenol or Motrin Humidifier/vaporizer or hot steamy shower Mucinex during the day for your cough and cough suppressant only at night. *Start steroid today. Helps with inflammation therefore, cough and wheezing. Follow directions on the package. Reviewed side effects. Patient reports taking them before. Follow up IMMEDIATELY for new or worsening of symptoms OR no noticeable improvement over the next 48-72 hours. 911 immediately for any life threatening symptoms such as chest pain or difficulty breathing Clinical Impressions Clinical Impression: Acute bronchitis Qualifiers: Bronchitis organism: unspecified organism Qualified Code(s): J20.9 - Acute bronchitis, unspecified Instructions Patient Instructions: Acute Bronchitis, DI for Acute Bronchitis Discharge ED Provider: Christina Higuera [facility] General Stated complaint: congestion, cough Mode of Arrival: Ambulatory Source of Information: Patient Limitations: No Limitations Time Seen by Provider: 12/28/22 11:16 Description of Symptoms (Recalled from Triage Doc. by RN): PATIENT C/O PRODUCTIVE COUGH AND CONGESTION X 2 DAYS HEENT Symptoms (Recalled from RN notes): Yes Resp Symptoms (Recalled from RN notes): Yes Skin Symptoms (Recalled from RN notes): No MS Symptoms (Recalled from RN notes): No Functional Status (Recalled from RN notes): WNL History of Present Illness Provider Complaint: Patient states that she has a hx of bronchitis and states that she feels like she has it now States that for the last couple of days she has been having cough that is productive at times, sinus congestion and drainage in the back of her throat States that she wanted to come in and get checked before it got too bad Related Data Home Medications Medication Instructions Recorded Confirmed rosuvastatin 40 mg tablet 40 mg PO DAILY Cholesterol 09/20/20 12/28/22 cyanocobalamin (vitamin B-12) 1,000 mcg IM MONTHLY Supplement 12/28/22 12/28/22 1,000 mcg/mL injection solution escitalopram oxalate 20 mg tablet 20 mg PO DAILY Anxiety 12/28/22 12/28/22 losartan 50 mg tablet 50 mg PO DAILY Hypertension 12/28/22 12/28/22 Previous Rx's Medication Instructions Recorded cefdinir 300 mg capsule 300 mg PO BID #20 caps 12/28/22 guaifenesin 600 mg tablet, 600 mg PO BID PRN cough #20 tabs 12/28/22 extended release 12 hr (Mucinex) prednisone 10 mg tablet 10 mg PO BID #10 tabs 12/28/22 Allergies Allergy/AdvReac Type Severity Reaction Status Date / Time No Known Allergies Allergy Verified 09/20/20 11:09 Worker's Comp Is this a Worker's Comp case?: [facility] Disclaimer: The information contained in this section may have been updated after the patient was seen, as this information c
[2022-12-28 11:38] VITALS: BP 128/76; PULSE 78; RESP 19; TEMP 36.9; O2SAT 100
== END 2022-12-28 11:43 | disposition home or self-care (01) ==
PROVIDERS: Emergency Provider Nurse Practitioner
DX: J20.9 Acute bronchitis, unspecified (principal); F17.210 Nicotine dependence, cigarettes, uncomplicated
CPT/HCPCS: 99212; 99214; G0463

== ENCOUNTER 2023-06-17 13:56 | Emergency (ER) | payer BC, SELFPAY ==
[2023-06-17 14:50] VITALS: BP 144/84; PULSE 68; RESP 20; TEMP 36.7; O2SAT 95; BMI 25.2
--- NOTE | 2023-06-17 15:11 | EXP.UTC ---
Discharge Plan Disposition Patient Disposition: Home, Self-Care Condition: Good Prescriptions Prescriptions: No Action losartan 50 mg tablet 50 mg PO DAILY Patient Comments: TAKE 1 TABLET BY MOUTH DAILY escitalopram oxalate 20 mg tablet 20 mg PO DAILY Patient Comments: TAKE 1 TABLET BY MOUTH DAILY ezetimibe 10 mg tablet 10 mg PO DAILY Patient Comments: TAKE 1 TABLET BY MOUTH DAILY bupropion HCl 150 mg tablet extended release 24 hr 150 mg PO DAILY Patient Comments: TAKE 1 TABLET BY MOUTH EVERY MORNING Referrals Follow up/Referrals: Provider,Referral, MD [Primary Care Provider] - See instructions Activity Restrictions/Add. Instructions Additional Instructions/Restrictions: Wear Velcro wrist splint as advised Follow up with your Family Doctor for furhter evaluation and testing Follow up with Ortopedics if needed Over the counter Mortin and/or Tylenol for pain Clinical Impressions Clinical Impression: Pain in left wrist Instructions Patient Instructions: Carpal Tunnel Syndrome (Alternative Therapy), Carpal Tunnel Syndrome Discharge ED Provider: Christina Higuera [facility] General Stated complaint: left wrist arm pain no accident Mode of Arrival: Ambulatory Source of Information: Patient Limitations: No Limitations Time Seen by Provider: 06/17/23 15:18 Description of Symptoms (Recalled from Triage Doc. by RN): PATIENT C/O A BURNING PAIN THAT STARTS IN HER LEFT PALM AND RADIATES UP HER ARM TO A LITTLE PAST HER ELBOW. SHE STATES PAIN STARTED 3 DAYS AGO AND IS WORSE WITH MOVEMENT. NO KNOWN INJURY HEENT Symptoms (Recalled from RN notes): No Resp Symptoms (Recalled from RN notes): No Skin Symptoms (Recalled from RN notes): No MS Symptoms (Recalled from RN notes): Yes Functional Status (Recalled from RN notes): WNL History of Present Illness Provider Complaint: Patient states that she has been having a burning like sensation in her left hand that radiates up her wrist and forearm to a little above elbow pain is worse with movement Denies known injury Reports feels like she has knot on her wrist States that she does cross stitch everyday not sure if she may have done something Related Data Home Medications Medication Instructions Recorded Confirmed escitalopram oxalate 20 mg tablet 20 mg PO DAILY Anxiety 12/28/22 06/17/23 losartan 50 mg tablet 50 mg PO DAILY Hypertension 12/28/22 06/17/23 bupropion HCl 150 mg 24 hr tablet, 150 mg PO DAILY 06/17/23 06/17/23 extended release ezetimibe 10 mg tablet 10 mg PO DAILY 06/17/23 06/17/23 Allergies Allergy/AdvReac Type Severity Reaction Status Date / Time No Known Allergies Allergy Verified 09/20/20 11:09 Worker's Comp Is this a Worker's Comp case?: No [facility] Disclaimer: The information contained in this section may have been updated after the patient was seen, as this information can be updated by other users. Medical History (Updated 06/17/23 @ 16:16 by Christina Higuera APRN) Anxiety Hypertension Hyperlipidemia Surgical History (Updated 06/17/23 @ 15:00 by Mary Downs RN) History of thumb surgery History of shoulder surgery History of hysterectomy History of section History of cholecystectomy History of appendectomy Social History Smoking Status: Current every day smoker tobacco type: cigarettes packs per day: 1 alcohol intake: never current occupational status: other Travel in the last 8 weeks: None ROS Obtained: Yes All systems reviewed & no additional complaints except as documented and Yes Systems reviewed as appropriate & no additional complaints except as documented Constitutional Constitutional: Reports system reviewed and no additional complaints, except as documented and Reports as per HPI Cardiovascular Cardiovascular: Reports system reviewed and no additional complaints, except as documented and Reports as per HPI Respiratory Respiratory: Reports system reviewed and no additional complaints, except as documented and Reports as per HPI Gastrointestinal Gastrointestingal: Reports system reviewed and no additional complaints, except as documented and as per HPI Musculoskeletal Musculoskeletal: Reports system reviewed and no additional complaints, except as documented and Reports as per HPI Comments: pain in left hand that radiates up wrist and just above elbow with movement Physical Exam General General appearance: alert and in no apparent distress Respiratory Respiratory exam: Present normal lung sounds bilaterally; Absent respiratory distress or wheezes Cardiovascular Cardiovascular exam: Present regular rate, normal rhythm and normal heart sounds Expanded Upper Extremity Exam Left: L/R Arms Bottom View: 1. reports burning like feeling from the palm of her hand that radiates up through wrist to just below elbow worse with movement or bending of fingers Denies known injury Has small raised area on wrist not sure if she may have hit it or something Neurological Exam Neurological exam: Present alert, oriented X3 and normal gait Medical Decision Making Matthew Inquiry Pt receiving controlled substance: No Matthew was queried for this patient: No Vital Signs: 06/17/23 14:50 Temperature 98.0 F Temperature Source Oral Pulse Rate [Right Brachial] 68 Respiratory Rate 20 Blood Pressure [Right Arm] 144/84 H Blood Pressure Mean [Right Arm] 104 Blood Pressure Source [Right Arm] Automatic Cuff Blood Pressure Position [Right Arm] Sitting 02 Sat by Pulse Oximetry 95 Oxygen Delivery Method Room Air Radiology Data #1: Image(s): Wrist Image Reviewed: Yes I have reviewed radiologist's interpretation IMPRESSION: No acute osseous abnormality of the left wrist. Mild degenerative change and chronic fractures of the distal radius and ulnar styloid. Medical Decision Narrative: Patient has velcro wrist splint from home doesnt want to wait for official reading will call back for results
--- NOTE | 2023-06-17 15:19 | XR_ITS ---
FINAL REPORT CLINICAL HISTORY: pain in wrist with knot COMPARISON: None FINDINGS: AP, oblique, and lateral views of the left wrist were obtained. There is no prior exam for comparison. There is no acute fracture or dislocation. There are chronic fractures of the distal radius and the ulnar styloid. Mild degenerative change is present. The soft tissues are normal. IMPRESSION: No acute osseous abnormality of the left wrist. Mild degenerative change and chronic fractures of the distal radius and ulnar styloid. Reviewed, Interpreted and Dictated by Fernando Villalobos III, MD Transcribed by Kusum Alejandro Authenticated and [facility]
[2023-06-17 16:15] VITALS: BP 144/84; PULSE 68; RESP 20; TEMP 36.7; O2SAT 95
== END 2023-06-17 16:17 | disposition home or self-care (01) ==
PROVIDERS: Emergency Provider Nurse Practitioner
DX: M25.532 Pain in left wrist (principal); F41.9 Anxiety disorder, unspecified; I10 Essential (primary) hypertension; E78.5 Hyperlipidemia, unspecified; F17.210 Nicotine dependence, cigarettes, uncomplicated
CPT/HCPCS: 73110; 99212; 99213; G0463

== ENCOUNTER 2023-11-18 11:40 | Emergency (ER) | payer BC, SELFPAY ==
[2023-11-18 11:42] VITALS: BP 153/69; PULSE 88; RESP 16; TEMP 36.6; O2SAT 94; BMI 26.2
--- NOTE | 2023-11-18 11:47 | ED_ITS ---
Discharge Plan Disposition Patient Disposition: Home, Self-Care Condition: Good Prescriptions Prescriptions: New prednisone 20 mg tablet 20 mg PO DAILY 5 Days Qty: 5 0RF No Action losartan 50 mg tablet 50 mg PO DAILY Patient Comments: TAKE 1 TABLET BY MOUTH DAILY escitalopram oxalate 20 mg tablet 20 mg PO DAILY Patient Comments: TAKE 1 TABLET BY MOUTH DAILY ezetimibe 10 mg tablet 10 mg PO DAILY Patient Comments: TAKE 1 TABLET BY MOUTH DAILY bupropion HCl 150 mg tablet extended release 24 hr 150 mg PO DAILY Patient Comments: TAKE 1 TABLET BY MOUTH EVERY MORNING Referrals Follow up/Referrals: Provider,Referral, MD [Primary Care Provider] - See instructions Activity Restrictions/Add. Instructions Additional Instructions/Restrictions: As we discussed, you have received a dose of steroids here in the emergency department. Please start the course of by mouth steroids starting tomorrow. You may additionally use famotidine or Pepcid, as well as Benadryl. Please return with any new or worsening symptoms. Clinical Impressions Clinical Impression: Allergic reaction Instructions Patient Instructions: DI for Skin Abscess Print Language Print Language: Wolof Discharge ED Provider: Pantera Adkins General Adult HPI General Chief complaint: Skin/Abscess/Foreign Body Stated complaint: swelling and internal itching Time Seen by Provider: 11/18/23 11:47 History of Present Illness HPI narrative: The patient presents with severe itching approximately one week after undergoing a discectomy and fusion at levels four, five, and six. The itching is described as feeling like ants biting all over the body, with a particular focus on the hands and the top of the head. The patient has experienced similar itching following previous surgeries, but the cause has not been narrowed down to anesthesia or sutures. The patient has tried taking two Benadryl at 8:30 this morning and used hydrocortisone with aloe and aloe vera for relief. In the past, steroids have been effective in alleviating the itching. The patient denies any fever, difficulty breathing, nausea, or vomiting. The neck is reported to be doing well, albeit a bit swollen, and the patient has been scratching and rubbing it. The hands are also swollen and itchy. The patient occasionally experiences itching in the feet, which feels like a nerve set off. The itching began yesterday, and ice provides temporary relief. The patient's last surgery was in 2016, during which they experienced similar itching. Steroids were administered via IV and were effective in stopping the itching. The patient has also used Benadryl, hydrocortisone cream, and cooling aloe vera for relief during previous episodes. The patient reports that the itching pings different parts of the body and mentions that the top of the head is particularly affected. The patient's hands are visibly scratched from the itching. The patient has mild diabetes but is not currently on any medication for it. The patient is still using an elevated bed and only gets up to walk. The patient and their housing assistant property manager inquired about the possibility of an allergy to sutures or skin glue used in the surgery. Please note that above description of symptoms, in this electronic medical record under categorization of recalled from ER triage doctor by RN are reflective of an initial nursing assessment, however, is not reflective of my full history and physical exam that was personally taken and clarified. Consequentially, this preceding description of symptoms, which may include the patient's categorized chief complaint in the EMR, do not reflect my personal clinical impression, and the ultimate description of history of present illness and patient stated complaints should be deferred to this section of the note. Unless stated otherwise or congruent with this section of the note, additional signs, symptoms, or incongruence should be interpreted as inaccurate with my clinical impression. Related Data Home Medications ?Medication ?Instructions ?Recorded ?Confirmed escitalopram oxalate 20 mg tablet 20 mg PO DAILY Anxiety 12/28/22 06/17/23 losartan 50 mg tablet 50 mg PO DAILY Hypertension 12/28/22 06/17/23 bupropion HCl 150 mg 24 hr tablet, 150 mg PO DAILY 06/17/23 06/17/23 extended release ezetimibe 10 mg tablet 10 mg PO DAILY 06/17/23 06/17/23 Previous Rx's ?Medication ?Instructions ?Recorded prednisone 20 mg tablet 20 mg PO DAILY 5 days #5 tabs 11/18/23 Allergies Allergy/AdvReac Type Severity Reaction Status Date / Time No Known Allergies Allergy Verified 09/20/20 11:09 [facility] Disclaimer: The information contained in this section may have been updated after the patient was seen, as this information can be updated by other users. Medical History (Updated 11/18/23 @ 12:48 by Pantera Adkins MD) Anxiety Hypertension Hyperlipidemia Surgical History (Updated 06/17/23 @ 15:00 by Mary Downs RN) History of thumb surgery History of shoulder surgery History of hysterectomy History of section History of cholecystectomy History of appendectomy Social History Smoking Status: Current every day smoker tobacco type: cigarettes packs per day: 1 alcohol intake: never current occupational status: other Travel in the last 8 weeks: None ROS Obtained: Yes other As per HPI Physical Exam General General appearance: alert and in no apparent distress Head Head exam: atraumatic and normocephalic Eye Eye exam: Present normal appearance Neck Neck exam: Present normal inspection Chest Chest inspection: Present normal inspection and symmetric chest wall rise Respiratory Respiratory exam: Present normal lung sounds bilaterally; Absent respiratory distress Cardiovascular Cardiovascular exam: Present regular rate and normal rhythm Abdominal Exam Abdominal exam: Present soft Neurological Exam Neurological exam: Present alert and oriented X3 Psychiatric Psychiatric exam: Present normal affect and normal mood Skin Skin exam: Present warm and dry Other Other exam information: Mild swelling of bilateral hands, excoriations, surgical incision on anterior neck well-healing, nontender to palpation, no active drainage. No wheezing, no dyspnea, no other systemic signs of illness. Medical Decision Making Medical Records Medical records reviewed: Yes I reviewed the patient's medical records. Matthew Inquiry Pt receiving controlled substance: No Vital Signs: 11/18/23 11:42 11/18/23 12:01 11/18/23 12:30 Temperature 97.9 F Temperature Source Oral Pulse Rate 94 H 82 Pulse Rate [Left Radial] 88 Respiratory Rate 16 Blood Pressure 153/69 H 140/74 Blood Pressure [Right Arm] 153/69 H Blood Pressure Mean [Right Arm] 97 02 Sat by Pulse Oximetry 94 L 94 L 93 L Oxygen Delivery Method Room Air Room Air 11/18/23 13:01 Temperature 98.0 F Temperature Source Pulse Rate 82 Pulse Rate [Left Radial] Respiratory Rate 16 Blood Pressure 140/74 Blood Pressure [Right Arm] Blood Pressure Mean [Right Arm] 02 Sat by Pulse Oximetry Oxygen Delivery Method Orders (Tests/Meds): ED MEDICATIONS Discontinued Medications Generic Name Dose Route Start Last Admin Trade Name Freq PRN Reason Stop Dose Admin Methylprednisolone Sodium Succinate 40 mg 11/18/23 12:47 11/18/23 12:55 Methylprednisolone Sod Succ 40mg Vial IM 11/18/23 12:48 40 mg ONCE ONE Administration Medical Decision Narrative: Patient with history and exam per above presenting for evaluation of rash following surgery Diagnoses considered include allergic reaction, contact dermatitis, no clinical evidence to suggest anaphylaxis or infectious process ED workup and treatment included: Methylprednisone 40 mg intramuscular x 1. No further workup is indicated at this time. My clinical impression at this time is most consistent with allergic reaction, unknown precipitant, patient may have had allergic reaction to anesthesia versus observable sutures, however has manifested similar symptoms in the past and recovered after course of steroids. She is deemed stable for discharge at this time with course of steroids, antihistamines, strict return precautions. I discussed my clinical impression with patient and answered all questions. At this time, the evidence for any other entities in the differential is insufficient to warrant any further testing or ED observation. This was explained to the patient. The patient was advised that persistent or worsening symptoms require further evaluation. Critical Care Critical Care Time Critical Care Time: No
[2023-11-18 12:01] VITALS: BP 153/69; PULSE 94; O2SAT 94
[2023-11-18 12:30] VITALS: BP 140/74; PULSE 82; O2SAT 93
[2023-11-18] MEDS: METHYLPREDNISOLONE SOD SUCC 40MG VIAL 40 MG IM (12:55)
[2023-11-18 13:01] VITALS: BP 140/74; PULSE 82; RESP 16; TEMP 36.7
== END 2023-11-18 13:02 | disposition home or self-care (01) ==
PROVIDERS: Emergency Provider Emergency Medicine
DX: T78.40XA Allergy, unspecified, initial encounter (principal)
CPT/HCPCS: 96372; 99283; J2919

== ENCOUNTER 2024-07-04 10:30 | Outpatient (CLI) | payer MEDICARE, BC, SELFPAY | END 2024-07-04 23:59 | disposition home or self-care (01) | LOC: LAB.DROPOF 07-05 15:02 | PROVIDERS: PCP Nurse Practitioner; Visit Provider Nurse Practitioner | DX: R35.0 Frequency of micturition (principal) | CPT/HCPCS: 87086; 87088; 87186 ==